=== PATIENT | female | born 1995 | race Caucasian/White ===

== ENCOUNTER 2018-11-29 16:19 | Outpatient (REF) | payer BC, SELFPAY | END 2018-11-29 16:39 | LOC: LBN 16:19 | PROVIDERS: Visit Provider Nurse Practitioner Family | DX: J02.9 Acute pharyngitis, unspecified (principal) | CPT/HCPCS: 87070 ==

== ENCOUNTER 2020-05-31 09:21 | Emergency (ER) | payer BC, SELFPAY ==
[2020-05-31 09:27] VITALS: BP 138/85; PULSE 93; RESP 18; TEMP 36.7; O2SAT 99
--- NOTE | 2020-05-31 09:42 | W.ED.GENAD ---
Discharge Plan Disposition Patient Disposition: HOME Condition: Stable Discharge Details Chief Complaint: RespSymp Clinical Impression: Streptococcal sore throat Primary Care Provider: Kitty Wright ED Provider: Loretta Toney Home Meds and New Rx's Prescriptions: No Action nystatin 100,000 unit/gram cream 1 applic TP TID PRN (Reason: axillae and groin rash) Qty: 30 RF: 3 sertraline 50 mg tablet 50 mg PO DAILY Qty: 90 RF: 3 benzoyl peroxide 60 GM gel 1 kathryn Topical DAILY Qty: 60 RF: 3 (DME) Aerochamber Mini 1 EACH spacer 1 ea Miscellaneous PRN Qty: 1 RF: 0 Mirena 1 EACH intrauterine device 1 ea Intrauterine ONCE Qty: 1 RF: 0 aluminum chloride 60 ML solution 60 ml Topical DAILY Qty: 1 RF: 3 albuterol sulfate [ProAir HFA] 90 mcg/actuation HFA aerosol inhaler 1 - 2 puff Inhalation Q6H PRN Qty: 8.5 RF: 12 acetaminophen [Tylenol] 325 MG tablet 650 mg PO Q4H PRN PRNQty: 30 RF: 0 ibuprofen 600 MG tablet 600 mg PO Q6H PRN (Reason: Pain) Qty: 16 RF: 0 Discharge Instructions Instructions: Strep Throat (ED), Upper Respiratory Infection (ED) Additional Instructions: Follow up with primary care provider in 3-5 days. Return to ED sooner if any worsening or concerns. Increase oral fluids. Please take Tylenol or Ibuprofen with food every 4-6 hours as needed for pain and swelling. Gargle with warm salt water 3 times a day as needed. Stand Alone Forms: PENDING COVID-19 TESTING, Work Release Referrals: Kitty Wright NP [Primary Care Provider] - Medical Decision Making 24-year-old female presents to the ER with chief complaint of cough, sore throat and sinus pressure which began yesterday. Patient reports fever low-grade of 99 at home. Associated with a dry cough. 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 She is concerned for COVID and is requesting Carolyn testing at this time. No other symptoms no nausea vomiting diarrhea no dysuria. She is alert and oriented x4. She did not take any medications prior to arrival. Rapid strep swab positive for Streptococcal sore throat, patient given 1.2 million units Bicillin IM and covid swab pending at this time. Discharged with Covid pending instructions and instructed to gargle with warm salt water. Verbalized understanding. HPI General Mode of arrival: ambulatory. Date/Time Provider Initiated Documentation: 05/31/20 09:30. Limitations to Documentation: no limitations. Information obtained by: patient. HPI Narrative: 24-year-old female presents to the ER with chief complaint of cough, sore throat and sinus pressure which began yesterday. Patient reports fever low-grade of 99 at home. Associated with a dry cough. 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 She is concerned for COVID and is requesting Carolyn testing at this time. No other symptoms no nausea vomiting diarrhea no dysuria. She is alert and oriented x4. She did not take any medications prior to arrival. Related Data Home Medications Medication Instructions Recorded Confirmed benzoyl peroxide 1 kathryn TOPICAL DAILY #60 gm 05/18/14 05/31/20 Aerochamber Mini #1 inh.kit 05/28/14 11/29/18 Mirena 1 ea INTRAUTERINE ONCE #1 implant 01/29/17 05/31/20 aluminum chloride 60 ml TOPICAL DAILY #1 script 04/18/17 05/31/20 acetaminophen [Tylenol] 650 mg PO Q4H PRN PRN #30 tab 10/22/17 05/31/20 ibuprofen 600 mg PO Q6H PRN #16 tab 03/14/18 05/31/20 nystatin 100,000 unit/gram topical 1 applic TP TID PRN #30 gm 10/17/18 05/31/20 cream sertraline 50 mg tablet 50 mg PO DAILY #90 tab-cap 11/12/19 05/31/20 albuterol sulfate 90 mcg/actuation 1 - 2 puff INHALATION Q6H PRN #8.5 12/05/19 05/31/20 aerosol inhaler gm Previous Rx's Medication Instructions Recorded acetaminophen [Tylenol] 650 mg PO Q4H PRN PRN #30 tab 10/22/17 ibuprofen 600 mg PO Q6H PRN #16 tab 03/14/18 nystatin 100,000 unit/gram topical 1 applic TP TID PRN #30 gm 10/17/18 cream sertraline 50 mg tablet 50 mg PO DAILY #90 tab-cap 11/12/19 albuterol sulfate 90 mcg/actuation 1 - 2 puff INHALATION Q6H PRN #8.5 12/05/19 aerosol inhaler gm Allergies Allergy/AdvReac Type Severity Reaction Status Date / Time No Known Allergies Allergy Verified 05/31/20 09:38 General Stated Complaint: RespSymp JUAN: 3 Review of Systems Narrative: Constitutional: Negative for weight loss, alert and oriented, well groomed, normal body habitus, appears comfortable. HEENT: Denies trauma, headaches, blurry vision, trouble swallowing. Reports sinus tenderness, sore throat and runny nose. Chest: Denies chest pain, palpitations, irregular rhythm, hypertension. Respiratory: Denies Shortness of breath, hemoptysis. Positive dry cough GI: Denies abdominal pain, nausea, vomiting, diarrhea, constipation. : Denies dysuria, hematuria, flank pain, rectal bleeding. Neuro: Denies dizziness, blurry vision, weakness, syncope, headache or facial numbness. Hematologic: Denies easy bruising, intolerance to heat or cold, hair loss. All systems reviewed & are unremarkable except as noted in HPI and below PFSH Medical History Anxiety Anxiety and depression (Chronic 11/08/16) Asthma Depression Hearing problem Vision problem Surgical History Removal of uterine polyp Tooth extraction Family History Mother Essential hypertension Depression treated w/ zoloft/therapy Hyperlipidemia Father Substance abuse Alcohol abuse Heart disease Sister Asthma Sister Depression Brother No problems noted. Grandfather Substance abuse Depression Heart disease Grandfather Substance abuse Heart disease Grandmother Graves' disease Depression Grandmother Substance abuse Depression Neoplasm PANCREATIC Sister No problems noted. Family history Anxiety Crohn's disease Kidney stones Family history of thyroid problem Social History Smoking/Tobacco Use Status: Never Alcohol Intake: current Alcohol Intake frequency: holidays/special occasions only Drug use: Never Substance use type: marijuana Adopted: No Household members: none Housing: apartment current occupation: [employer] Pets and animals: No What type of physical activity do you participate in: other Details: 11/12/19-started a weekly dance class Duration: 60-90 minutes/day Frequency: 1-2 times per week Seatbelt use: always Working smoke detector in home: Yes Fire extinguisher in home: Yes Carbon monox detector in home: Yes Do you feel safe at home: Yes Do you feel safe in your relationship?: Yes Exam Narrative Exam Narrative: Constitutional: Alert and oriented x3. Appears stated age. Normal body habitus. Head: Normocephalic, no trauma. Eyes: Pupils PERRLA, Red reflex noted, EOM's intact. Eyelids symmetrical without lesions, discharge, or swelling. ENT: Bilateral TM's WNL, External ear normal to inspection, no mastoid TTP, swelling, or erythema, Nasal turbinates WNL, no nasal discharge. Normal dentition, Posterior pharynx WNL, no exudate. Chest: RRR, Normal S1, S2, distal pulses intact. Resp: Lungs clear to auscultation bilaterally, no wheezes, rales, or rhonchi. Musculoskeletal: Normal gait, 5/5 strength to all four extremities. Skin: No suspicious rashes or lesions. Capillary refill less than 2 sec. Neurologic: Cranial nerves II-XII intact. Alert and oriented x 3. DTR's intact. Hematologic/Lymphatic: No ecchymosis, no lymphadenopathy. Course Vital Signs Vital signs: Vital Signs Temperature 36.7 C 05/31/20 09:27 Pulse 93 H 05/31/20 09:27 Respiratory Rate 18 05/31/20 09:27 Blood Pressure 138/85 05/31/20 09:27 Pulse Oximetry 99 05/31/20 09:27 Temperature 36.7 C 05/31/20 09:27 Temperature Source Temporal Artery Scan 05/31/20 09:27 Pulse 93 H 05/31/20 09:27 Respiratory Rate 18 05/31/20 09:27 Respiratory Effort Non-Labored 05/31/20 09:37 Respiratory Depth Normal 05/31/20 09:37 Blood Pressure 138/85 05/31/20 09:27 Blood Pressure Position Sitting 05/31/20 09:27 Pulse Oximetry 99 05/31/20 09:27 Oxygen Delivery Method Room Air 05/31/20 09:27 Oxygen Flow Rate 0 05/31/20 09:27 Pain Level 8 05/31/20 09:27
[2020-06-03 01:50] LABS: Patient Race White; SARS-CoV-2 RNA Undetected (Undetected); SARS-CoV-2 Specimen Source Nasopharynx
== END 2020-05-31 10:55 | disposition home or self-care (01) ==
PROVIDERS: Emergency Provider Registered Nurse Emergency; PCP Nurse Practitioner
DX: J02.0 Streptococcal pharyngitis (principal); Z03.818 Encounter for observation for suspected exposure to other biological agents ruled out
CPT/HCPCS: 87449; 87880; 99283; U0003; J0561

== ENCOUNTER 2021-01-03 19:40 | Outpatient (REF) | payer BC, SELFPAY ==
[2021-01-05 12:27] LABS: COVID-19 RT-PCR UVMMC Result Negative (Negative)
== END 2021-01-03 19:41 | disposition home or self-care (01) ==
LOC: LBN 19:40
PROVIDERS: PCP Nurse Practitioner; Visit Provider Nurse Practitioner Family
DX: J02.9 Acute pharyngitis, unspecified (principal)
CPT/HCPCS: U0003; 87070

== ENCOUNTER 2021-02-07 11:26 | Outpatient (CLI) | payer BC, SELFPAY ==
--- NOTE | 2021-02-07 | DI.RAD_ITS ---
Exam(s) XR FOOT LT COMPLETE EXAM: XR FOOT LT COMPLETE CLINICAL HISTORY: PAIN LT FOOT M79.672, PAIN BETWEEN 2ND AND 3RD TOE. TECHNIQUE: 2D digital imaging was performed. COMPARISON: No exams were available for comparison FINDINGS: There is no evidence of fracture or diastasis of the Lisfranc joint. Bone density is normal. No osseo us lesions nor osseous tarsal coalition evident. No pes planus. No radiopaque foreign body. Bipartite medial sesamoid is noted subjacent to the great toe metatarsal head. IMPRESSION: No fracture evident. DATA REPOSITORY: RADIATION DOSE DELIVERED:
== END 2021-02-07 11:46 ==
PROVIDERS: PCP Nurse Practitioner; Visit Provider Nurse Practitioner Family
DX: M79.672 Pain in left foot (principal)
CPT/HCPCS: 73630

== ENCOUNTER 2021-02-16 09:27 | Outpatient (REF) | payer BC, SELFPAY ==
--- NOTE | 2021-02-16 09:00 | PAPFT_PTH ---
PATIENT: Ibrahima De Leon LOC: [facility] U#:[id number] AGE/SX: 25/F ROOM: RE02/16/[address]: Kitty Wright APRN : 1995 BED: DIS: 02/16/2021 SPEC #: [id number] RECD: 02/16/21 17:57 STATUS: CELESTINO RELaly #: [id number] OMAR: 02/16/21 09:[address]: Kitty Wright DEPT: [facility] Cytology RECD BY: Yoana Smith Tissues: 1 - CX/ENDOCX FOR PAP SMEARS Procedures: PAP THIN PREP/UVM Screening Comments: [id number] (CHLAMYDIA/GC)
[2021-02-17 14:37] LABS: Chlamydia Result Negative (Negative); GC Result Negative (Negative)
== END 2021-02-16 09:28 | disposition home or self-care (01) ==
LOC: LBN 09:27
PROVIDERS: PCP Nurse Practitioner; Visit Provider Nurse Practitioner
DX: Z11.3 Encounter for screening for infections with a predominantly sexual mode of transmission (principal); Z12.4 Encounter for screening for malignant neoplasm of cervix
CPT/HCPCS: 87491; 87591; 88142

== ENCOUNTER 2022-02-10 20:39 | Outpatient (REF) | payer BC, SELFPAY | END 2022-02-10 20:40 | disposition home or self-care (01) | LOC: LBN 20:39 | PROVIDERS: PCP Nurse Practitioner; Visit Provider Physician Assistant | DX: L08.89 Other specified local infections of the skin and subcutaneous tissue (principal) | CPT/HCPCS: 87070; 87075; 87205 ==

== ENCOUNTER 2022-02-24 01:49 | Outpatient (CLI) | payer BC, SELFPAY ==
[2022-02-24 09:19] LABS: HCT 41.3 % (36.0-46.0); HGB 13.7 g/dL (11.2-15.7); MCH 30.5 pg (27.0-33.0); MCHC 33.2 % (32.0-36.0); MCV 92 fL (80-95); MPV 10.5 fL (8.0-11.0); Platelet Count 270 10^3/uL (130-400); RBC 4.49 10^6/uL (3.93-5.22); RDW-SD 43.9 fL; WBC 8.07 10^3/uL (4.4-10.8)
[2022-02-24 09:39] LABS: Hemoglobin A1C 5.3 % (<5.7)
[2022-02-24 10:33] LABS: Anion Gap 9.2 mmol/L (3-11); BUN 9 mg/dL (7-18); CO2 25.8 mmol/L (21.0-32.0); CREATININE 0.7 mg/dL (0.55-1.02); Calcium 8.9 mg/dL (8.5-10.1); Calculated LDL 120 mg/dL (<100); Chloride 106 mmol/L (98-107); Cholesterol 192 mg/dL (<200); Glucose 97 mg/dL (74-106); HDL Cholesterol 59 mg/dL (40-60); Potassium 4.6 mmol/L (3.5-5.1); Sodium 141 mmol/L (136-145); TSH (W/Ref FT4) 1.55 uIU/mL (0.36-3.74); Triglyceride 66 mg/dL (<150)
== END 2022-02-24 01:50 | disposition home or self-care (01) ==
LOC: LBO 01:49
PROVIDERS: PCP Nurse Practitioner; Visit Provider Nurse Practitioner
DX: E11.9 Type 2 diabetes mellitus without complications (principal); I10 Essential (primary) hypertension; F41.9 Anxiety disorder, unspecified; F32.9 Major depressive disorder, single episode, unspecified; E66.9 Obesity, unspecified
CPT/HCPCS: 36415; 80048; 80061; 85027; 83036; 84443; 87075

== ENCOUNTER 2022-11-22 10:28 | Outpatient (CLI) | payer BC, SELFPAY ==
--- NOTE | 2022-11-22 10:15 | RT.EKG_ITS ---
APPROVED REPORT Exam: Resting ECG Reason for Exam: pt takes adderall Patient Location: O HR:86 bpm ECG Measurements Heart Rate 86 AXIS MS 161 P 30 QRSd 92 QRS 18 QT 354 T 40 QTc 424 Conclusion Sinus rhythm...normal P axis, V-rate 50- 99 Normal Electrocardiogram
== END 2022-11-22 10:29 | disposition home or self-care (01) ==
LOC: DI.KIM 10:29
PROVIDERS: PCP Nurse Practitioner; Visit Provider Nurse Practitioner
DX: Z51.81 Encounter for therapeutic drug level monitoring (principal)
CPT/HCPCS: 93010

== ENCOUNTER 2024-01-23 18:02 | Outpatient (REF) | payer BC, SELFPAY | END 2024-01-23 18:03 | disposition home or self-care (01) | LOC: LBN 18:02 | PROVIDERS: PCP Nurse Practitioner; Visit Provider Nurse Practitioner Family | DX: L72.0 Epidermal cyst (principal); L98.8 Other specified disorders of the skin and subcutaneous tissue | CPT/HCPCS: 87070; 87205 ==

== ENCOUNTER 2024-05-12 09:40 | Outpatient (REF) | payer BC, SELFPAY ==
--- NOTE | 2024-05-12 09:15 | PAPFT_PTH ---
PATIENT: Ibrahima De Leon LOC: [facility] U#:[id number] AGE/SX: 29/F ROOM: RE05/12/[address]: Deonna Plaza NP : 1995 BED: DIS: 05/12/2024 SPEC #: [id number] RECD: 05/12/24 12:56 STATUS: CELESTINO RELaly #: [id number] OMAR: 05/12/24 09:[address]: Deonna Plaza NP DEPT: [facility] Cytology RECD BY: Yoana Smith ENTERED: 05/12/24 12:57 SP TYPE: PAPFT OT DR: Kitty Wright APRN Tissues: 1 - CX/ENDOCX FOR PAP SMEARS Procedures: PAP THIN PREP/[facility]VM Screening Comments: [id number]
== END 2024-05-12 09:41 | disposition home or self-care (01) ==
LOC: LBN 09:40
PROVIDERS: PCP Nurse Practitioner; Visit Provider Nurse Practitioner Women's Health
DX: Z12.4 Encounter for screening for malignant neoplasm of cervix (principal)
CPT/HCPCS: 88142